=== PATIENT | male | born 1975 | race Caucasian/White ===

== ENCOUNTER 2019-01-23 10:09 | Outpatient (CLI) | payer BC ==
--- NOTE | 2019-01-23 12:25 | RAD ---
LEFT FOOT 3 VIEWS: Date: 01/23/19 HISTORY: Stress fracture left foot. Pain around 5th metatarsal. FINDINGS: There are no signs of fracture. I do not see any bony periosteal reaction. Joint spaces are well pres erved. Small calcaneal spur at the plantar fascia insertion noted. IMPRESSION: No acute injury. POS: [facility]
== END 2019-01-23 10:10 | disposition home or self-care (01) ==
LOC: BICRAD 10:09
PROVIDERS: ATTEND Specialist
DX: M84.375A Stress fracture, left foot, initial encounter for fracture (principal)

== ENCOUNTER 2020-03-27 09:13 | Outpatient (CLI) | payer BC ==
--- NOTE | 2020-03-27 09:30 | RAD ---
EXAM: 3 views of the left shoulder HISTORY: Shoulder pain after lifting injury COMPARISON: None FINDINGS: There is no evidence of acute fracture or dislocation. No degenerative changes are present. No soft tissue swelling is seen. The visualized thorax is unremarkable. IMPRESSION: No evidence of acute osseous abnormality.
== END 2020-03-27 09:14 | disposition home or self-care (01) ==
LOC: BICRAD 09:13
PROVIDERS: ATTEND Specialist
DX: M25.512 Pain in left shoulder (principal)

== ENCOUNTER 2022-05-04 10:04 | Outpatient (CLI) | payer BC | END 2022-05-04 10:05 | disposition home or self-care (01) | LOC: BICRAD 10:04 | PROVIDERS: ATTEND Specialist | DX: M25.522 Pain in left elbow (principal) ==